=== PATIENT | female | born 1975 | race Caucasian/White ===

== ENCOUNTER 2017-05-03 10:33 | Emergency (ER) | payer BC, OTHER ==
[2017-05-03] MEDS ORDERED: Sodium Chloride 0.9% 10 ML Syringe FLUSH PRN (10:34)
--- NOTE | 2017-05-03 10:37 | EDM.PDOC ---
ED HPI GENERAL MEDICAL PROBLEM - General Chief Complaint: Chest Pain Stated Complaint: CHEST TO BACK PAIN Time Seen by Provider: 05/03/17 10:35 Source of Information: Reports: Patient, RN, RN Notes Reviewed History Limitations: Reports: No Limitations - History of Present Illness INITIAL COMMENTS - FREE TEXT/NARRATIVE: Pt presents to the ER with c/o chest palpitations and sob. She states she has been having some chest pressure and upper back pain for the past 1 month. She denies pain at this time, but states when she was at work this morning she felt "fluttering" in her chest and became sob. She denies any cardiac history, any recent illnesses. She denies feeling light headed, or dizziness. Onset: Gradual - Related Data Allergies Allergy/AdvReac Type Severity Reaction Status Date / Time No Known Allergies Allergy Verified 05/03/17 10:37 Home Meds: Home Meds ARIPiprazole [Abilify] 30 mg PO 05/03/17 [History] ED ROS GENERAL - Review of Systems Review Of Systems: ROS reveals no pertinent complaints other than HPI. ED EXAM, GENERAL - Physical Exam Exam: See Below Exam Limited By: No Limitations General Appearance: Alert, WD/WN, No Apparent Distress Eye Exam: Bilateral Eye: EOMI, Normal Inspection, Other (Glasses, past Lasik surgery) Ears: Normal External Exam, Hearing Grossly Normal Nose: Normal Inspection Throat/Mouth: Normal Inspection, Normal Voice, No Airway Compromise Head: Atraumatic, Normocephalic Neck: Normal Inspection, Supple, Non-Tender, Full Range of Motion Respiratory/Chest: No Respiratory Distress, Lungs Clear, Normal Breath Sounds, No Accessory Muscle Use, Chest Non-Tender Cardiovascular: Normal Peripheral Pulses, Regular Rate, Rhythm (unifocal PVC's shown on monitor), No Edema, No Gallop, No JVD, No Murmur, No Rub Peripheral Pulses: 2+: Radial (L), Radial (R), Dorsalis Pedis (L), Dorsalis Pedis (R) GI/Abdominal: Normal Bowel Sounds, Soft, Non-Tender, No Organomegaly, No Distention, No Abnormal Bruit, No Mass, Pelvis Stable (Female) Exam: Deferred Rectal (Female) Exam: Deferred Back Exam: Normal Inspection, Full Range of Motion Extremities: Normal Inspection, Normal Range of Motion, Non-Tender, No Pedal Edema, Normal Capillary Refill Neurological: Alert, Oriented, Normal Cognition, Normal Gait, No Motor/Sensory Deficits Psychiatric: Normal Affect, Normal Mood Skin Exam: Warm, Dry, Intact, Normal Color, No Rash Lymphatic: No Adenopathy EKG INTERPRETATION EKG Date: 05/03/17 Time: 10:42 Rhythm: NSR Rate (Beats/Min): 77 [place]: Normal P-Wave: Present QRS: Normal ST-T: Normal QT: Normal Comparison: NA - No Prior EKG Course - Vital Signs Last Recorded V/S: Last Vital Signs Temp 97.4 F 05/03/17 10:38 Pulse 94 05/03/17 10:38 Resp 16 05/03/17 10:38 BP 126/66 05/03/17 10:38 Pulse Ox 100 05/03/17 10:38 - Orders/Labs/Meds Orders: Active Orders 24 hr Category Date Time Status EKG Documentation Completion [RC] STAT Care 05/03/17 10:35 Active Peripheral IV Care [RC] . DIRECTED Care 05/03/17 10:35 Active Chest 1V Frontal [CR] Stat Exams 05/03/17 10:35 Taken Sodium Chloride 0.9% [Saline Flush] Med 05/03/17 10:34 Active 10 ml FLUSH ASDIRECTED PRN Peripheral IV Insertion Adult [OM.PC] Stat Oth 05/03/17 10:35 Ordered Medication Orders Sodium Chloride (Saline Flush) 10 ml FLUSH ASDIRECTED PRN PRN Reason: Keep Vein Open Last Admin: 05/03/17 10:50 Dose: 10 ml Labs: Laboratory Tests 05/03/17 05/03/17 05/03/17 Range/Units 10:50 10:50 10:50 WBC 8.3 (5.0-10.0) 10^3/uL RBC 4.92 (4.2-5.4) 10^6/uL Hgb 14.3 (12.0-16.0) g/dL Hct 43.1 (37.0-47.0) % MCV 87.6 (80-100) fL MCH 29.1 (27.0-34.0) pg MCHC 33.2 (33.0-35.0) g/dL Plt Count 337 (150-450) 10^3/uL Neut % (Auto) 71.2 (42.2-75.2) % Lymph % (Auto) 18.0 L (20.5-50.1) % [place] % (Auto) 7.8 (2-8) % Eos % (Auto) 2.5 (1.0-3.0) % Baso % (Auto) 0.5 (0.0-1.0) % Sodium 140 (135-145) mmol/L Potassium 3.9 (3.6-5.0) mmol/L Chloride 105 (101-111) mmol/L Carbon Dioxide 26.0 (21.0-31.0) mmol/L Anion Gap 12.9 BUN 14 (7-18) mg/dL Creatinine 1.0 (0.6-1.3) mg/dL Est Cr Clr Drug Dosing 60.00 mL/min Estimated GFR (MDRD) > 60 BUN/Creatinine Ratio 14.00 Glucose 83 (74-105) mg/dL Calcium 9.2 (8.4-10.2) mg/dl Total Bilirubin 0.7 (0.2-1.0) mg/dL AST 34 (10-42) IU/L ALT 29 (10-60) IU/L Alkaline Phosphatase 58 (42-121) IU/L Troponin I < 0.02 (0.00-0.02) ng/ml Total Protein 7.5 (6.7-8.2) g/dl Albumin 4.0 (3.2-5.5) g/dl Globulin 3.5 Albumin/Globulin Ratio 1.14 Urine Color (YELLOW) Urine Appearance (CLEAR) Urine pH (5.0-9.0) Ur Specific [place] (1.005-1.030) Urine Protein (NEGATIVE) Urine Glucose (UA) (NEGATIVE) Urine Ketones (NEGATIVE) Urine Occult Blood (NEGATIVE) Urine Nitrite (NEGATIVE) Urine Bilirubin (NEGATIVE) Urine Urobilinogen (0.2-1.0) mg/dL Ur Leukocyte Esterase (NEGATIVE) Urine RBC /HPF Urine WBC (0-5/HPF) /HPF Ur Epithelial Cells /HPF Urine Bacteria (0-FEW/HPF) /HPF Urine Mucus /LPF Urine HCG, Qual Negative 05/03/17 Range/Units 10:50 WBC (5.0-10.0) 10^3/uL RBC (4.2-5.4) 10^6/uL Hgb (12.0-16.0) g/dL Hct (37.0-47.0) % MCV (80-100) fL MCH (27.0-34.0) pg MCHC (33.0-35.0) g/dL Plt Count (150-450) 10^3/uL Neut % (Auto) (42.2-75.2) % Lymph % (Auto) (20.5-50.1) % [place] % (Auto) (2-8) % Eos % (Auto) (1.0-3.0) % Baso % (Auto) (0.0-1.0) % Sodium (135-145) mmol/L Potassium (3.6-5.0) mmol/L Chloride (101-111) mmol/L Carbon Dioxide (21.0-31.0) mmol/L Anion Gap BUN (7-18) mg/dL Creatinine (0.6-1.3) mg/dL Est Cr Clr Drug Dosing mL/min Estimated GFR (MDRD) BUN/Creatinine Ratio Glucose (74-105) mg/dL Calcium (8.4-10.2) mg/dl Total Bilirubin (0.2-1.0) mg/dL AST (10-42) IU/L ALT (10-60) IU/L Alkaline Phosphatase (42-121) IU/L Troponin I (0.00-0.02) ng/ml Total Protein (6.7-8.2) g/dl Albumin (3.2-5.5) g/dl Globulin Albumin/Globulin Ratio Urine Color Yellow (YELLOW) Urine Appearance Clear (CLEAR) Urine pH 6.5 (5.0-9.0) Ur Specific [place] 1.020 (1.005-1.030) Urine Protein Trace H (NEGATIVE) Urine Glucose (UA) Negative (NEGATIVE) Urine Ketones Negative (NEGATIVE) Urine Occult Blood Large H (NEGATIVE) Urine Nitrite Negative (NEGATIVE) Urine Bilirubin Negative (NEGATIVE) Urine Urobilinogen 0.2 (0.2-1.0) mg/dL Ur Leukocyte Esterase Small H (NEGATIVE) Urine RBC 50-75 H /HPF Urine WBC 5-10 H (0-5/HPF) /HPF Ur Epithelial Cells Moderate H /HPF Urine Bacteria Moderate H (0-FEW/HPF) /HPF Urine Mucus Moderate H /LPF Urine HCG, Qual Meds: Medications Generic Name Dose Route Start Last Admin Trade Name Freq PRN Reason Stop Dose Admin Sodium Chloride 10 ml 05/03/17 10:34 05/03/17 10:50 Saline Flush FLUSH 10 ml ASDIRECTED PRN Administration Keep Vein Open - Radiology Interpretation Free Text/Narrative:: chest xray: See rad report Departure - Departure Time of Disposition: 11:45 Disposition: Home, Self-Care 01 Condition: Good Clinical Impression: Palpitations UTI (urinary tract infection) Qualifiers: Urinary tract infection type: acute cystitis Hematuria presence: with hematuria Qualified Code(s): N30.01 - Acute cystitis with hematuria Back pain Qualifiers: Back pain location: thoracic back pain Chronicity: unspecified Back pain laterality: midline Qualified Code(s): M54.6 - Pain in thoracic spine Instructions: Nonspecific Chest Pain, [id number], Palpitations, [id number] Forms: ED Department Discharge Additional Instructions: RX: Macrobid Make an appointment to establish a primary care provider for further evaluation and care - My Orders Last 24 Hours: My Active Orders 05/03/17 10:34 Sodium Chloride 0.9% [Saline Flush] 10 ml FLUSH ASDIRECTED PRN 05/03/17 10:35 EKG Documentation Completion [RC] STAT Peripheral IV Care [RC] . DIRECTED Chest 1V Frontal [CR] Stat Peripheral IV Insertion Adult [OM.PC] Stat - Assessment/Plan Last 24 Hours: My Active Orders 05/03/17 10:34 Sodium Chloride 0.9% [Saline Flush] 10 ml FLUSH ASDIRECTED PRN 05/03/17 10:35 EKG Documentation Completion [RC] STAT Peripheral IV Care [RC] . DIRECTED Chest 1V Frontal [CR] Stat Peripheral IV Insertion Adult [OM.PC] Stat
[2017-05-03 11:17] LABS: CHLORIDE,CL 105 mmol/L (101-111); SODIUM,NA 140 mmol/L (135-145)
--- NOTE | 2017-05-03 12:13 | CR ---
Clinical history: 41-year-old female with chest pain. Interpretation: Reasonable inspiratory effort obese female with normal cardiac silhouette (external c ardiac monitor leads). No new signs of lung mass, infiltrate, atelectasis or heart failure when compared directly to previou s exam of 14 July 2008. No pneumothorax. No free subdiaphragmatic air. CONCLUSION: No acute new cardiopulmonary abnormality.
--- NOTE | 2017-05-04 10:32 | EKG ---
05/03/2017 - CHERYL SANTAMARIA - EKG shows normal sinus rhythm. [facility] /[id number]
== END 2017-05-03 11:53 | disposition home or self-care (01) ==
LOC: DL.ED 10:33
DX: R00.2 Palpitations (principal); M54.6 Pain in thoracic spine; N30.01 Acute cystitis with hematuria
CPT/HCPCS: 36415; 71010; 80053; 81001; 81025; 84484; 85025; 93005; 99285; J7050